=== PATIENT | female | born 1975 | race Caucasian/White ===

== ENCOUNTER → 2018-02-21 | Outpatient (CLI) | payer BC, OTHER ==
--- NOTE | 2018-02-22 14:25 | MM ---
Reason for exam: screening (asymptomatic). Last mammogram was performed 2 years and 8 months ago. History: Family history of breast cancer in maternal grandmother at age 70 and breast cancer in paternal grandmother at age 70. Physical Findings: A clinical breast exam by your physician is recommended on an annual basis and results should be correlated with mammographic findings. MG Screening Mammo w CAD Bilateral CC and MLO view(s) were taken. Prior study comparison: June 19, 2015, bilateral MG screening mammo w CAD. November 19, 2013, [facility] DIGITAL LEFT BREAST MAMMOGRAM w/CAD. The breast tissue is heterogeneously dense. This may lower the sensitivity of mammography. Finding: There is an intermediate concern, suspicious 7 mm microlobulated irregular mass located 8 cm from the nipple in the 11 o'clock posterior position of the left breast. Stable left breast calcifications. New finding since June 19, 2015. ASSESSMENT: Incomplete: need additional imaging evaluation, BI-RAD 0 RECOMMENDATION: Special view mammogram and ultrasound of the left breast. [facility] will attempt to contact patient to return for supplemental views and ultrasound.
== END | disposition home or self-care (01) ==
LOC: RADMAMWWP 09:13
PROVIDERS: ATTEND Family Medicine
DX: Z12.31 Encounter for screening mammogram for malignant neoplasm of breast (principal)
CPT/HCPCS: 77067

== ENCOUNTER → 2018-02-28 | Outpatient (CLI) | payer BC, OTHER ==
--- NOTE | 2018-02-28 10:21 | MM ---
Reason for exam: additional evaluation requested from abnormal screening. Last mammogram was performed less than 1 month ago. History: Family history of breast cancer in paternal aunt at age 55 and breast cancer in paternal grandmother at age 70. Took hormonal contraceptives for 10 years. Physical Findings: Nurse did not find any significant physical abnormalities on exam. MG Work Up Mamm w CAD LT Spot compression CC, spot compression MLO, and ML view(s) were taken of the left breast. Prior study comparison: February 21, 2018, bilateral MG screening mammo w CAD. June 19, 2015, bilateral MG screening mammo w CAD. The breast tissue is heterogeneously dense. This may lower the sensitivity of mammography. Finding #1: There is a 7 mm equal density (isodense) mass in the upper inner quadrant of the left breast. Finding #2: There are stable typically benign calcifications in the left breast. These results were verbally communicated with the patient and result sheet given to the patient on 02/28/18. ASSESSMENT: Probably benign, BI-RAD 3 RECOMMENDATION: Follow-up diagnostic mammogram of the left breast in 6 months.
--- NOTE | 2018-02-28 10:24 | USB ---
Reason for exam: additional evaluation requested from abnormal screening. History: Family history of breast cancer in paternal aunt at age 55 and breast cancer in paternal grandmother at age 70. Took hormonal contraceptives for 10 years. US Breast Workup LT Left breast ultrasound demonstrates a 0.3 x 0.2 x 0.5cm lesion too small to characterize at 7o'clock, a 0.2 x 0.2 x 0.4cm lesion too small to characterize at 10 o'clock, a 0.6 x 0.3 x 0.5cm cystic lesion at 10 o'clock and a 0.9 x 0.5 x 0.5cm cystic cluster at 11 o'clock. These results were verbally communicated with the patient and result sheet given to the patient on 02/28/18. ASSESSMENT: Probably benign, BI-RAD 3 RECOMMENDATION: Follow-up diagnostic mammogram and ultrasound of the left breast in 6 months.
== END | disposition home or self-care (01) ==
LOC: RADMAMWWP 07:43
PROVIDERS: ATTEND Family Medicine
DX: R92.8 Other abnormal and inconclusive findings on diagnostic imaging of breast (principal)
CPT/HCPCS: 77065

== ENCOUNTER → 2020-09-02 | Outpatient (CLI) | payer BC ==
--- NOTE | 2020-09-04 12:24 | MM ---
Reason for exam: screening (asymptomatic). Last mammogram was performed 2 years and 6 months ago. History: Patient history of other cancer. Family history of breast cancer in maternal aunt at age 55 and breast cancer in maternal grandmother at age 70. Took hormonal contraceptives for 10 years. Physical Findings: A clinical breast exam by your physician is recommended on an annual basis and results should be correlated with mammographic findings. MG Screening Mammo w CAD Bilateral CC and MLO view(s) were taken. Prior study comparison: February 28, 2018, left breast MG work up mamm w CAD LT. February 21, 2018, bilateral MG screening mammo w CAD. The breast tissue is heterogeneously dense. This may lower the sensitivity of mammography. Benign appearing calcifications in the left breast. ASSESSMENT: Benign, BI-RAD 2 RECOMMENDATION: Routine screening mammogram of both breasts in 1 year.
== END | disposition home or self-care (01) ==
LOC: RADMAMWWP 07:56
PROVIDERS: ATTEND Family Medicine
DX: Z12.31 Encounter for screening mammogram for malignant neoplasm of breast (principal)
CPT/HCPCS: 77067

== ENCOUNTER → 2022-01-11 | Outpatient (CLI) | payer BC ==
--- NOTE | 2022-01-12 10:56 | MM ---
Reason for exam: screening (asymptomatic). Last mammogram was performed 1 year and 4 months ago. History: Patient history of other cancer. Family history of breast cancer in maternal aunt at age 55 and breast cancer in maternal grandmother at age 70. Took hormonal contraceptives for 10 years. Physical Findings: A clinical breast exam by your physician is recommended on an annual basis and results should be correlated with mammographic findings. MG 3D Screening Mammo W/Cad Bilateral CC and MLO view(s) were taken. Prior study comparison: September 02, 2020, bilateral MG screening mammo w CAD. February 28, 2018, left breast MG work up mamm w CAD LT. The breast tissue is heterogeneously dense. This may lower the sensitivity of mammography. Stable benign calcifications. There is no discrete abnormality. No significant changes when compared with prior studies. ASSESSMENT: Benign, BI-RAD 2 RECOMMENDATION: Routine screening mammogram of both breasts in 1 year.
== END | disposition home or self-care (01) ==
LOC: RADMAMWWP 13:10
PROVIDERS: ATTEND Obstetrics & Gynecology
DX: Z12.31 Encounter for screening mammogram for malignant neoplasm of breast (principal); Z80.3 Family history of malignant neoplasm of breast
CPT/HCPCS: 77063; 77067

== ENCOUNTER → 2022-03-11 | Outpatient (CLI) | payer BC ==
--- NOTE | 2022-03-11 14:42 | USB ---
Reason for exam: clinical finding. History: Patient history of other cancer. Family history of breast cancer in maternal aunt at age 55 and breast cancer in maternal grandmother at age 70. Took hormonal contraceptives for 10 years. Physical Findings: A clinical breast exam by your physician is recommended on an annual basis and results should be correlated with mammographic findings. US Breast RT Right complete breast ultrasound includes all four quadrants, the retroareolar region and axilla. Finding demonstrates a 6 x 4 x 6mm oval, cystic lesion at 1 o'clock, a 4 x 3 x 6mm oval, mixed lesion at 5 o'clock, a 8 x 5 x 10mm lobular, questionable cystic cluster at 9 o'clock and a 13 x 6 x 12mm lobular, questionable cystic cluster at 10 o'clock. Results were given to the patient verbally at the time of the exam. ASSESSMENT: Benign, BI-RAD 2 RECOMMENDATION: Return to routine screening mammogram schedule for both breasts. Manage patient on a clinical basis.
== END | disposition home or self-care (01) ==
LOC: RADUSWWP 14:04
PROVIDERS: ATTEND Student in an Organized Health Care Education/Training Program
DX: N64.89 Other specified disorders of breast (principal); Z80.3 Family history of malignant neoplasm of breast

== ENCOUNTER → 2022-03-15 | Outpatient (CLI) | payer BC ==
[2022-03-15 09:27] VITALS: RESP 16
[2022-03-15 11:53] VITALS: BP 125/74; PULSE 89; TEMP 98.1
--- NOTE | 2022-03-17 22:25 | MM ---
EXAMINATION TYPE: MG ductogram single duct RT DATE OF EXAM: 03/17/2022 CLINICAL HISTORY: 46-year-old female with spontaneous bloody nipple discharge for 2 months, N64.52 NI PPLE DISCHARGE. COMPARISON: 09/02/2020 and 01/11/2022 TECHNIQUE: The procedure of ductogram was explained to the patient. Benefits, alternatives, and risks were disc ussed. An informed consent was then obtained. The patient was partially reclined on the exam chair. The technologist accessed the trigger point whi ch elicited single pore bloody nipple discharge from a medial pore. Standard sterile technique was ut ilized. The nipple surface was bathed with 1% lidocaine. A total of 5 mL Omnipaque 300 contrast mater ial was drawn into a syringe. A 30-gauge blunt-tipped sialogram needle was bent 90 degrees and also b athed in 1% lidocaine. There were multiple attempts at cannulating the pore. The opening was unperceivable but we were even tually successful in cannulating after multiple attempts. Subsequently, a total of 1 mL contrast material was injected. Injection was stopped after firm resist ance was encountered. Subsequent 3-D CC, 3-D MLO, and 3-D LM views were obtained with the catheter in place. FINDINGS: The opacified duct segment is located at the 5 to 6:00 position. Ductal opacification only extends ba ck 5.5 cm into the breast. Located 1.2 cm back from the nipple, there is focal irregular narrowing and suggestion of a tiny 3 mm filling defect. Also, on the CC view, located 1.9 cm back from the nipple, there is a 1 cm long segment of irregular narrowing of the duct. Catheter was removed. The patient tolerated the procedure well and was released in unchanged conditio n. IMPRESSION: BI-RADS 4, suspicious IMPRESSION: 1. Successful injection of a 5-6 o'clock duct segment of the right breast experiencing spontaneous bl oody nipple discharge. 2. There is focal narrowing and a tiny 3 mm filling defect located 1.2 cm back from the nipple. Addit ionally, there is a 1.0 cm long segment of irregular narrowing located 1.9 cm back from the nipple be st seen on the CC view. Both of these areas can be assessed with surgical duct exploration.
== END | disposition home or self-care (01) ==
LOC: RADMAMWWP 09:01
PROVIDERS: ATTEND Student in an Organized Health Care Education/Training Program
DX: N64.52 Nipple discharge (principal)
CPT/HCPCS: 77053; 19030; Q9967